=== PATIENT | male | born 1985 | race Caucasian/White ===

== ENCOUNTER 2019-11-20 03:17 | Emergency (ER) | payer OTHER ==
[~2019-11-20] VITALS: Ht 165.1 cm; Wt 83.9 kg
[2019-11-20 03:22] VITALS: BP 157/99
--- NOTE | 2019-11-20 03:28 | NUR ---
PT TAKEN TO BED 11
--- NOTE | 2019-11-20 03:29 | NUR ---
Dr. Hopper examining patient.
[2019-11-20] MEDS ORDERED: KETOROLAC 30 MG/ML VIAL ONE (03:33)
[2019-11-20] MEDS ORDERED: KETOROLAC 30 MG/ML VIAL IM ONE (03:35)
--- NOTE | 2019-11-20 03:38 | NUR ---
33 year old male coming in for c/o podagra on right foot x 1 day. states he ate a lot off seafood and meat this past monday. reports pain on the affected side. denies any other s/sx. denies any injury or trauma. pmhx: denies nka
--- NOTE | 2019-11-20 03:48 | NUR ---
Patient discharged with v/s stable. Written and verbal after care instructions given and explained. Patient alert, oriented and verbalized understanding of instructions. Ambulatory with steady gait. All questions addressed prior to discharge. ID band removed. Patient advised to follow up with PMD. Rx of norco and naprosyn given. Patient educated on indication of medication including possible reaction and side effects. Opportunity to ask questions provided and answered.
== END 2019-11-20 03:48 | disposition home or self-care (01) ==
LOC: MED 03:17
DX: M79.674 Pain in right toe(s) (principal)
CPT/HCPCS: 96372; 99283; J1885

== ENCOUNTER 2020-07-26 23:24 | Emergency (ER) | payer OTHER ==
[~2020-07-26] VITALS: Ht 167.6 cm; Wt 80.7 kg
[2020-07-26 23:30] VITALS: BP 145/82
[2020-07-27] MEDS ORDERED: IBUPROFEN 600 MG TAB PO ONE (02:30)
[2020-07-27] MEDS ORDERED: IBUP-2213 PO (02:37)
[2020-07-27 02:55] VITALS: BP 127/77
== END 2020-07-27 02:55 | disposition home or self-care (01) ==
LOC: MED 23:24
DX: S93.401A Sprain of unspecified ligament of right ankle, initial encounter (principal); X58.XXXA Exposure to other specified factors, initial encounter; Y93.89 Activity, other specified; Y92.89 Other specified places as the place of occurrence of the external cause; Y99.8 Other external cause status
CPT/HCPCS: 73590; 73610; 73630; 99282; 99284

== ENCOUNTER 2022-11-07 18:10 | Emergency (ER) | payer OTHER ==
[~2022-11-07] VITALS: Ht 165.1 cm; Wt 81.6 kg
[~2022-11-07 18:10] MED LIST: IBUP-2213 PO
[2022-11-07 19:02] VITALS: BP 129/83; PULSE 63; RESP 20; TEMP 98.2; O2SAT 100
[2022-11-07] MEDS ORDERED: KETOROLAC 30 MG/ML VIAL IM ONE (19:25)
[2022-11-07] MEDS ORDERED: COLC-30 PO (19:29)
[2022-11-07] MEDS ORDERED: PRED20TA5 PO (19:29)
[2022-11-07] MEDS ORDERED: COLCHICINE 0.6 MG TAB PO ONE (19:30)
[2022-11-07 20:35] VITALS: BP 129/83; PULSE 63; RESP 20; TEMP 98.2; O2SAT 100
== END 2022-11-07 20:35 | disposition home or self-care (01) ==
LOC: MED 18:10
DX: M10.071 Idiopathic gout, right ankle and foot (principal); Z79.899 Other long term (current) drug therapy
CPT/HCPCS: 96372; 99283; J1885

== ENCOUNTER 2022-11-13 08:16 | Emergency (ER) | payer OTHER ==
[~2022-11-13] VITALS: Ht 165.1 cm; Wt 81.6 kg
[~2022-11-13 08:16] MED LIST changes: +COLC-30 PO; +PRED20TA5 PO
[2022-11-13 08:31] VITALS: BP 119/56; PULSE 84; RESP 16; TEMP 97.4; O2SAT 99
[2022-11-13] MEDS ORDERED: KETOROLAC 60 MG/2 ML VIAL IM ONE (09:35)
[2022-11-13] MEDS ORDERED: PRED20TA5 PO (09:42)
[2022-11-13] MEDS ORDERED: INDO-305 PO (09:42)
== END 2022-11-13 09:56 | disposition home or self-care (01) ==
LOC: MED 08:16
DX: M79.674 Pain in right toe(s) (principal); Z79.899 Other long term (current) drug therapy
CPT/HCPCS: 96372; 99283; J1885